=== PATIENT | female | born 1945 | race Caucasian/White ===

== ENCOUNTER 2021-10-03 17:33 | Inpatient (IN) | payer MEDICARE, OTHER ==
[2021-10-03 18:29] LABS: #Monocytes 0.7 10x3/uL (0.0-1.1); #Neutrophils 4.2 10x3/uL (1.5-8.4); %Basophils 0.3 % (0.0-2.0); %Lymphocytes 16.3 % (18.0-47.0); %Monocytes 11.2 % (0.0-10.0); %Neutrophils 71.3 % (40.0-75.0); Hemoglobin 12.4 g/dL (12.0-15.5); Mean Corpuscular HGB CONC 32.5 g/dL (32.0-36.0); Mean Corpuscular Hemoglobin 32.1 pg (27.0-33.0); Mean Corpuscular Volume 98.7 fl (81.6-98.3); Mean Platelet Volume 8.8 fl (7.4-10.4); Platelet Count 273 10x3/uL (150-450); RBC Distribution Width 12.9 % (11.5-14.5); Red Blood Cell (RBC) Count 3.86 10x6/uL (3.90-5.03); White Blood Cell (WBC) Count 5.8 10x3/uL (3.5-10.5)
[2021-10-03 18:44] LABS: ALT (SGPT) 20 U/L (8-55); AST (SGOT) 25 U/L (5-34); Albumin 3.6 g/dL (3.4-4.8); Alkaline Phosphatase 76 U/L (40-110); Anion Gap 14 mmol/L (10-20); BUN (Urea Nitrogen) 43 mg/dL (9.8-20.1); Bilirubin, Total 0.2 mg/dL (0.2-1.2); Calc. Creatinine Clearance 0 mL/min (70-130); Calcium 8.3 mg/dL (7.8-10.44); Carbon Dioxide 12 mmol/L (23-31); Chloride 111 mmol/L (98-107); Estimated GFR 22; Globulin 2.5 g/dL (2.4-3.5); Glucose 89 mg/dL (83-110); Protein, Total 6.1 g/dL (5.8-8.1); Sodium 130 mmol/L (136-145)
[2021-10-03 18:47] LABS: Potassium 6.6 mmol/L (3.5-5.1)
[2021-10-03] MEDS ORDERED: Sodium Bicarb 50 MEQ/50 ML VIAL ONE (19:16)
[2021-10-03] MEDS ORDERED: Dextrose 50% Abboject 50 ML SYRINGE ONE (19:17)
[2021-10-03] MEDS ORDERED: Insulin Regular 300 UNITS/3 ML VIAL ONE (19:17)
[2021-10-03] MEDS ORDERED: Calcium Chloride 1 GM/10 ML Abboject SYRINGE ONE (19:18)
[2021-10-03] MEDS ORDERED: Calcium Gluc 4.6 MEQ/10 ML (100 MG/ML) ONE (19:19)
[2021-10-03 19:51] LABS: Anion Gap 14 mmol/L (10-20); BUN (Urea Nitrogen) 41 mg/dL (9.8-20.1); Calc. Creatinine Clearance 0 mL/min (70-130); Calcium 8.1 mg/dL (7.8-10.44); Carbon Dioxide 12 mmol/L (23-31); Chloride 111 mmol/L (98-107); Estimated GFR 24; Glucose 77 mg/dL (83-110); Potassium 6.2 mmol/L (3.5-5.1); Sodium 131 mmol/L (136-145)
[2021-10-03] MEDS ORDERED: Albuterol Sulfate 2.5 mg/0.5 ml Neb ONE (19:55)
[2021-10-03] MEDS ORDERED: Albuterol Sulfate 2.5 mg/3 ml Neb ONE (19:55)
[2021-10-03] MEDS ORDERED: Ondansetron PF 4 MG/2 ML Vial IVP PRN (21:38)
[2021-10-03] MEDS ORDERED: Senokot S 8.6-50 MG TAB PO PRN (21:38)
[2021-10-03] MEDS ORDERED: Acetaminophen 325 MG TAB PO PRN (21:38)
[2021-10-03] MEDS ORDERED: Guaifenesin DM 100-10/5 ML UDCUP PO PRN (21:38)
[2021-10-03] MEDS ORDERED: Calcium Carbonate 500 MG ChewTAB PO PRN (21:38)
[2021-10-03] MEDS ORDERED: diphenhydrAMINE 12.5 MG/5 ML UDCUP PO PRN (21:44)
[2021-10-03] MEDS ORDERED: Sodium Chloride 0.9% 1,000 ML IV SCH (21:45)
[2021-10-03] MEDS ORDERED: LOKELMA 10 GM PACKET PO SCH (21:45)
[2021-10-03] MEDS ORDERED: Calcium Gluc 4.6 MEQ/10 ML (100 MG/ML) SLOW IVP SCH (22:00)
[2021-10-03] MEDS: Dextrose 5 %-0.45 % NaCl 1,000 ML IV SCH (23:29)
[2021-10-03 23:31] LABS: Anion Gap 14 mmol/L (10-20); BUN (Urea Nitrogen) 37 mg/dL (9.8-20.1); CK (CPK) 59 U/L (29-168); Calc. Creatinine Clearance 0 mL/min (70-130); Calcium 8.7 mg/dL (7.8-10.44); Carbon Dioxide 14 mmol/L (23-31); Chloride 114 mmol/L (98-107); Estimated GFR 26; Glucose 77 mg/dL (83-110); Potassium 5.6 mmol/L (3.5-5.1); Sodium 136 mmol/L (136-145)
[2021-10-03] MEDS: Sodium Bicarbonate Tab 325 MG TAB PO SCH (23:32)
[2021-10-04 00:05] VITALS: BMI 21.0
[2021-10-04 04:40] LABS: Hemoglobin 11.3 g/dL (12.0-15.5); Mean Corpuscular HGB CONC 33.4 g/dL (32.0-36.0); Mean Corpuscular Hemoglobin 32.4 pg (27.0-33.0); Mean Corpuscular Volume 96.8 fl (81.6-98.3); Mean Platelet Volume 8.8 fl (7.4-10.4); Platelet Count 239 10x3/uL (150-450); RBC Distribution Width 13.2 % (11.5-14.5); Red Blood Cell (RBC) Count 3.49 10x6/uL (3.90-5.03); White Blood Cell (WBC) Count 5.1 10x3/uL (3.5-10.5)
[2021-10-04 04:56] LABS: Anion Gap 12 mmol/L (10-20); BUN (Urea Nitrogen) 32 mg/dL (9.8-20.1); Calc. Creatinine Clearance 23 mL/min (70-130); Calcium 8.7 mg/dL (7.8-10.44); Carbon Dioxide 14 mmol/L (23-31); Chloride 113 mmol/L (98-107); Estimated GFR 31; Glucose 118 mg/dL (83-110); Potassium 4.5 mmol/L (3.5-5.1); Sodium 134 mmol/L (136-145)
[2021-10-04 04:58] LABS: MDiff Complete? YES
[2021-10-04 05:01] LABS: Band 9 % (5-11); Lymphocytes 22 % (21-51); Monocytes 6 % (0-10); Neutrophil 59 % (42-75); Reactive Lymphocytes 4 % (0-10)
[2021-10-04 05:02] LABS: Platelet Morphology Comment Appears Adequate; RBC Morphology Normal
[2021-10-04 05:12] LABS: Bilirubin Neg (Negative); Blood, Urine Negative (Negative); Clarity Clear (Clear); Glucose, Urine (Dipstick) Normal (Negative); Ketone, Urine Negative (Negative); Leukocyte Negative (Negative); Nitrite Negative (Negative); Protein, Urine (Dipstick) Negative (Neg-Trace); Specific Gravity, Urine 1.015 (1.002-1.036); Urobilinogen Normal mg/dL (Less than 2)
[2021-10-04 05:28] LABS: Free T4 (Free Thyroxine) 1.28 ng/dL (0.70-1.48); Thyroid Stimulating Hormone 0.0035 uIU/mL (0.35-4.94)
[2021-10-04 05:31] LABS: Bacteria/HPF None Seen HPF (None Seen); RBC/HPF 0-3 HPF (0-3); Squamous Epithelial 0-3 HPF (0-3); WBC/HPF 0-3 HPF (0-3)
[2021-10-04] MEDS ORDERED: BRINZOLAMIDE EA EYE SCH (09:00)
[2021-10-04] MEDS ORDERED: [UNRECOGNIZED DRUG - OTHER] EA EYE SCH (09:00)
[2021-10-04] MEDS ORDERED: BRIMONIDINE TART EA EYE SCH (09:00)
[2021-10-04] MEDS: Dextrose 5 %-0.45 % NaCl 1,000 ML IV SCH ×2 (10:11→18:02)
[2021-10-04] MEDS: Dorzolamide HCl 2% Ophth Soln 10 ml Bottle EA EYE SCH ×2 (10:12→22:00)
[2021-10-04] MEDS: Latanoprost 0.005% Ophth Soln 2.5 ml Bottle EA EYE SCH (10:12)
[2021-10-04] MEDS: Enoxaparin Sodium 30 MG/0.3 ML SYRINGE SC SCH (10:13)
[2021-10-04] MEDS: Brimonidine Tartrate 0.2% Ophth Soln 5 ml Bottle EA EYE SCH ×2 (10:13→22:00)
[2021-10-04] MEDS: Sodium Bicarbonate Tab 325 MG TAB PO SCH (10:13)
[2021-10-04] MEDS: Aspirin 81 mg Enteric Coated Tablet PO SCH (10:14)
[2021-10-04] MEDS: Ciprofloxacin 0.3% Ophth Soln 2.5 ml Bottle FS SCH ×2 (10:58→22:00)
[2021-10-05 04:54] LABS: MDiff Complete? YES
[2021-10-05 05:00] LABS: Anion Gap 9 mmol/L (10-20); BUN (Urea Nitrogen) 17 mg/dL (9.8-20.1); Calc. Creatinine Clearance 35 mL/min (70-130); Calcium 7.7 mg/dL (7.8-10.44); Carbon Dioxide 16 mmol/L (23-31); Chloride 115 mmol/L (98-107); Estimated GFR 50; Glucose 86 mg/dL (83-110); Potassium 3.8 mmol/L (3.5-5.1); Sodium 136 mmol/L (136-145)
[2021-10-05 05:47] LABS: Hemoglobin 10.8 g/dL (12.0-15.5); Mean Corpuscular Hemoglobin 32.3 pg (27.0-33.0); Mean Corpuscular Volume 95.2 fl (81.6-98.3); Mean Platelet Volume 8.8 fl (7.4-10.4); Platelet Count 222 10x3/uL (150-450); RBC Distribution Width 13.2 % (11.5-14.5); Red Blood Cell (RBC) Count 3.34 10x6/uL (3.90-5.03); White Blood Cell (WBC) Count 4.6 10x3/uL (3.5-10.5)
[2021-10-05 05:55] LABS: Band 1 % (5-11); Eosinophils 3 % (0-10); Lymphocytes 38 % (21-51); Monocytes 17 % (0-10); Neutrophil 41 % (42-75)
[2021-10-05 05:56] LABS: Platelet Morphology Comment Appears Adequate; RBC Morphology Normal
[2021-10-05] MEDS: Dextrose 5 %-0.45 % NaCl 1,000 ML IV SCH (08:21)
[2021-10-05] MEDS: Enoxaparin Sodium 30 MG/0.3 ML SYRINGE SC SCH (08:22)
[2021-10-05] MEDS: Aspirin 81 mg Enteric Coated Tablet PO SCH (08:23)
[2021-10-05] MEDS: Latanoprost 0.005% Ophth Soln 2.5 ml Bottle EA EYE SCH (08:23)
[2021-10-05] MEDS: Brimonidine Tartrate 0.2% Ophth Soln 5 ml Bottle EA EYE SCH (08:23)
[2021-10-05] MEDS: Dorzolamide HCl 2% Ophth Soln 10 ml Bottle EA EYE SCH (08:24)
[2021-10-05] MEDS: Ciprofloxacin 0.3% Ophth Soln 2.5 ml Bottle FS SCH (08:24)
[2021-10-05 08:44] VITALS: BP 124/73; TEMP 97.9
== END 2021-10-05 10:40 | disposition home health service (06) | DRG 682 ==
LOC: CSHERS 17:33 → CSHTELE 23:04
PROVIDERS: ADMIT Student in an Organized Health Care Education/Training Program; ATTEND Family Medicine
PROC: 8E0ZXY6 Isolation (ICD-10-PCS; principal; 2021-10-03)
DX: N17.9 Acute kidney failure, unspecified (principal); G93.41 Metabolic encephalopathy; U07.1 COVID-19; E87.2 Acidosis; N18.4 Chronic kidney disease, stage 4 (severe); E86.0 Dehydration; E87.5 Hyperkalemia; F41.9 Anxiety disorder, unspecified; F32.A Depression, unspecified; E03.9 Hypothyroidism, unspecified; H70.92 Unspecified mastoiditis, left ear; E78.5 Hyperlipidemia, unspecified; Z86.73 Personal history of transient ischemic attack (TIA), and cerebral infarction without residual deficits; Z79.899 Other long term (current) drug therapy; Z90.49 Acquired absence of other specified parts of digestive tract; Z90.710 Acquired absence of both cervix and uterus; Z98.890 Other specified postprocedural states
CPT/HCPCS: 36415; 36416; 70450; 71045; 76770; 80048; 80053; 81001; 82550; 84439; 84443; 84481; 84484; 85025; 93005; 94644; 94760; 96361; 96374; 96375; J0610; J1650; J1815; J7042; J7611; J7999

== ENCOUNTER 2022-08-13 14:00 | Emergency (ER) | payer OTHER ==
[2022-08-13 14:35] LABS: #Basophils 0.1 10x3/uL (0.0-0.2); #Eosinphils 0.2 10x3/uL (0.0-0.5); #Monocytes 0.8 10x3/uL (0.0-1.1); #Neutrophils 3.7 10x3/uL (1.5-8.4); %Eosinophils 3.4 % (0.0-6.0); %Lymphocytes 32.5 % (18.0-47.0); %Monocytes 10.8 % (0.0-10.0); %Neutrophils 51.7 % (40.0-75.0); Hemoglobin 11.1 g/dL (12.0-15.5); Mean Corpuscular HGB CONC 32.2 g/dL (32.0-36.0); Mean Corpuscular Hemoglobin 31.7 pg (27.0-33.0); Mean Corpuscular Volume 98.6 fl (81.6-98.3); Platelet Count 318 10x3/uL (150-450); RBC Distribution Width 13.2 % (11.5-14.5); White Blood Cell (WBC) Count 7.1 10x3/uL (3.5-10.5)
[2022-08-13 14:47] LABS: ALT (SGPT) 22 U/L (8-55); AST (SGOT) 33 U/L (5-34); Albumin 3.5 g/dL (3.4-4.8); Alkaline Phosphatase 86 U/L (40-110); Anion Gap 14 mmol/L (10-20); BUN (Urea Nitrogen) 21 mg/dL (9.8-20.1); Bilirubin, Total 0.3 mg/dL (0.2-1.2); Calc. Creatinine Clearance 0 mL/min (70-130); Calcium 8.2 mg/dL (7.8-10.44); Carbon Dioxide 16 mmol/L (23-31); Chloride 103 mmol/L (98-107); Estimated GFR 33; Globulin 2.1 g/dL (2.4-3.5); Glucose 96 mg/dL (83-110); Potassium 4.7 mmol/L (3.5-5.1); Protein, Total 5.6 g/dL (5.8-8.1); Sodium 128 mmol/L (136-145)
[2022-08-13] MEDS ORDERED: Furosemide 40 MG/4 ML VIAL ONE (16:41)
== END 2022-08-13 16:58 | disposition home or self-care (01) ==
LOC: CSHERS 14:00
DX: R06.02 Shortness of breath (principal); K21.9 Gastro-esophageal reflux disease without esophagitis; E78.5 Hyperlipidemia, unspecified; N18.6 End stage renal disease
CPT/HCPCS: 71045; 80053; 83880; 84484; 85025; 93005; 96374; J1940

== ENCOUNTER 2023-03-20 20:22 | Inpatient (IN) | payer OTHER ==
[2023-03-20] MEDS ORDERED: Ondansetron PF 4 MG/2 ML Vial ONE (21:02)
[2023-03-20] MEDS ORDERED: Morphine 4 MG/ML VIAL ONE (21:02)
[2023-03-20 21:10] LABS: Bilirubin Neg (Negative); Blood, Urine 50 (Negative); Clarity Slightly Cloudy (Clear); Glucose, Urine (Dipstick) Normal (Negative); Ketone, Urine Negative (Negative); Leukocyte 500 (Negative); Nitrite Negative (Negative); Protein, Urine (Dipstick) 100 mg/dl (Neg-Trace); Specific Gravity, Urine 1.015 (1.005-1.030); Urobilinogen Normal mg/dL (Less than 2)
[2023-03-20 21:23] LABS: Bacteria/HPF 1+ HPF (None Seen); CAUTI Indications for Culture Pelvic or flank pain
[2023-03-20 21:24] LABS: Urine Culture Reflex Yes Yes
[2023-03-20 21:40] LABS: #Monocytes 1.3 10x3/uL (0.0-1.1); #Neutrophils 7.3 10x3/uL (1.5-8.4); %Basophils 0.2 % (0.0-2.0); %Lymphocytes 4.4 % (18.0-47.0); %Monocytes 14.5 % (0.0-10.0); %Neutrophils 79.4 % (40.0-75.0); Hematocrit 32.7 % (34.9-44.5); Hemoglobin 11.6 g/dL (12.0-15.5); Mean Corpuscular HGB CONC 35.5 g/dL (32.0-36.0); Mean Corpuscular Hemoglobin 32.4 pg (27.0-33.0); Mean Corpuscular Volume 91.3 fl (81.6-98.3); Mean Platelet Volume 9.2 fl (7.4-10.4); Platelet Count 207 10x3/uL (150-450); RBC Distribution Width 13.6 % (11.5-14.5); Red Blood Cell (RBC) Count 3.58 10x6/uL (3.90-5.03); White Blood Cell (WBC) Count 9.2 10x3/uL (3.5-10.5)
[2023-03-20 21:47] LABS: ALT (SGPT) 30 U/L (8-55); AST (SGOT) 39 U/L (5-34); Albumin 3.2 g/dL (3.4-4.8); Alkaline Phosphatase 86 U/L (40-110); Anion Gap 15 mmol/L (10-20); BUN (Urea Nitrogen) 46 mg/dL (9.8-20.1); Bilirubin, Total 0.3 mg/dL (0.2-1.2); Calc. Creatinine Clearance 0 mL/min (70-130); Carbon Dioxide 17 mmol/L (23-31); Chloride 98 mmol/L (98-107); Estimated GFR 13; Globulin 2.8 g/dL (2.4-3.5); Glucose 126 mg/dL (83-110); Potassium 3.4 mmol/L (3.5-5.1); Sodium 127 mmol/L (136-145)
[2023-03-20] MEDS ORDERED: cefTRIAXone (ROCEPHIN) 1 GM VIAL ONE (23:13)
[2023-03-20] MEDS ORDERED: Potassium Chloride 20 MEQ (100 mL) BAG ONE (23:13)
[2023-03-21] MEDS ORDERED: Senokot S 8.6-50 MG TAB PO PRN (00:11)
[2023-03-21] MEDS ORDERED: Potassium Chloride 20 MEQ TAB PO SCH (00:30)
[2023-03-21] MEDS ORDERED: Potassium Chloride 20 MEQ TAB ONE (00:46)
[2023-03-21] MEDS: Sodium Chloride 0.9% 1,000 ML IV SCH ×2 (01:16→10:43)
[2023-03-21 01:44] VITALS: BMI 22.1
[2023-03-21 04:15] LABS: Anion Gap 13 mmol/L (10-20); BUN (Urea Nitrogen) 44 mg/dL (9.8-20.1); Calc. Creatinine Clearance 15 mL/min (70-130); Calcium 8.1 mg/dL (7.8-10.44); Carbon Dioxide 15 mmol/L (23-31); Chloride 104 mmol/L (98-107); Estimated GFR 16; Glucose 97 mg/dL (83-110); Magnesium 2.4 mg/dL (1.6-2.6); Potassium 3.9 mmol/L (3.5-5.1); Sodium 128 mmol/L (136-145)
[2023-03-21 05:15] LABS: #Monocytes 1.1 10x3/uL (0.0-1.1); #Neutrophils 6.7 10x3/uL (1.5-8.4); %Basophils 0.2 % (0.0-2.0); %Eosinophils 0.2 % (0.0-6.0); %Lymphocytes 7.2 % (18.0-47.0); %Monocytes 12.7 % (0.0-10.0); %Neutrophils 78.1 % (40.0-75.0); Hematocrit 30.9 % (34.9-44.5); Hemoglobin 10.9 g/dL (12.0-15.5); Mean Corpuscular HGB CONC 35.3 g/dL (32.0-36.0); Mean Corpuscular Hemoglobin 33.5 pg (27.0-33.0); Mean Corpuscular Volume 95.1 fl (81.6-98.3); Mean Platelet Volume 9.3 fl (7.4-10.4); Platelet Count 185 10x3/uL (150-450); RBC Distribution Width 13.9 % (11.5-14.5); Red Blood Cell (RBC) Count 3.25 10x6/uL (3.90-5.03); White Blood Cell (WBC) Count 8.6 10x3/uL (3.5-10.5)
[2023-03-21] MEDS: Levothyroxine Sodium 125 MCG TAB PO SCH (05:34)
[2023-03-21] MEDS ORDERED: BRIMONIDINE TART EA EYE SCH (09:00)
[2023-03-21] MEDS ORDERED: BRINZOLAMIDE EA EYE SCH (09:00)
[2023-03-21] MEDS ORDERED: [UNRECOGNIZED DRUG - OTHER] EA EYE SCH (09:00)
[2023-03-21] MEDS ORDERED: Enoxaparin 30 MG (0.3 mL) SYRINGE ONE (09:23)
[2023-03-21] MEDS: Latanoprost 0.005% Ophth Soln 2.5 ml Bottle EA EYE SCH (09:50)
[2023-03-21] MEDS: Enoxaparin 30 MG (0.3 mL) SYRINGE SC SCH (09:50)
[2023-03-21] MEDS ORDERED: Sodium Chloride 0.9% 1,000 ML IV SCH (12:45)
[2023-03-21] MEDS: Ipratropium/Albuterol 3 ML NEB NEB PRN (18:50)
[2023-03-21] MEDS: Escitalopram Oxalate 20 mg Tablet PO SCH (20:31)
[2023-03-21] MEDS: QUEtiapine 100 MG TAB PO SCH (20:31)
[2023-03-21] MEDS: Atorvastatin Calcium 20 MG TAB PO SCH (20:32)
[2023-03-21] MEDS: Acetaminophen 325 MG TAB PO PRN (20:32)
[2023-03-21] MEDS ORDERED: Ondansetron PF 4 MG/2 ML Vial IVP PRN (20:53)
[2023-03-21] MEDS ORDERED: Albuterol 2.5 MG (3 mL) NEB NEB SCH (21:15)
[2023-03-21] MEDS: Morphine 4 MG/ML VIAL SLOW IVP PRN (21:31)
[2023-03-21] MEDS: Doxycycline 100 MG in Sodium Chloride 0.9% 100 ML IVPB SCH (23:26)
[2023-03-21] MEDS: cefTRIAXone\\ROCEPHIN 2 GM in Sodium Chloride 0.9% 100 ML IVPB SCH (23:51)
[2023-03-22 04:56] LABS: #Monocytes 0.9 10x3/uL (0.0-1.1); %Basophils 0.3 % (0.0-2.0); %Eosinophils 0.4 % (0.0-6.0); %Lymphocytes 9.4 % (18.0-47.0); %Monocytes 11.9 % (0.0-10.0); %Neutrophils 75.6 % (40.0-75.0); Hematocrit 32.3 % (34.9-44.5); Hemoglobin 10.9 g/dL (12.0-15.5); Mean Corpuscular HGB CONC 33.7 g/dL (32.0-36.0); Mean Corpuscular Hemoglobin 32.3 pg (27.0-33.0); Mean Corpuscular Volume 95.8 fl (81.6-98.3); Mean Platelet Volume 9.1 fl (7.4-10.4); Platelet Count 222 10x3/uL (150-450); RBC Distribution Width 14.7 % (11.5-14.5); Red Blood Cell (RBC) Count 3.37 10x6/uL (3.90-5.03); White Blood Cell (WBC) Count 7.9 10x3/uL (3.5-10.5)
[2023-03-22 05:08] LABS: Anion Gap 13 mmol/L (10-20); BUN (Urea Nitrogen) 42 mg/dL (9.8-20.1); Calc. Creatinine Clearance 16 mL/min (70-130); Calcium 8.1 mg/dL (7.8-10.44); Carbon Dioxide 15 mmol/L (23-31); Chloride 112 mmol/L (98-107); Estimated GFR 18; Glucose 98 mg/dL (83-110); Magnesium 2.3 mg/dL (1.6-2.6); Potassium 5.1 mmol/L (3.5-5.1); Sodium 135 mmol/L (136-145)
[2023-03-22] MEDS: Levothyroxine Sodium 125 MCG TAB PO SCH (07:46)
[2023-03-22] MEDS: Latanoprost 0.005% Ophth Soln 2.5 ml Bottle EA EYE SCH (10:15)
[2023-03-22] MEDS: Doxycycline 100 MG in Sodium Chloride 0.9% 100 ML IVPB SCH (10:16)
[2023-03-22] MEDS: Enoxaparin 30 MG (0.3 mL) SYRINGE SC SCH (10:16)
[2023-03-22] MEDS: Morphine 4 MG/ML VIAL SLOW IVP PRN (14:38)
[2023-03-22] MEDS: Ipratropium/Albuterol 3 ML NEB NEB PRN (14:45)
[2023-03-22] MEDS: Budesonide 0.5 MG/2 ML NEB INH SCH (20:00)
[2023-03-22] MEDS: Ipratropium/Albuterol 3 ML NEB NEB SCH (20:10)
[2023-03-22] MEDS: Atorvastatin Calcium 20 MG TAB PO SCH (21:31)
[2023-03-22] MEDS: QUEtiapine 100 MG TAB PO SCH (21:31)
[2023-03-22] MEDS: Escitalopram Oxalate 20 mg Tablet PO SCH (21:31)
[2023-03-22] MEDS: Acetaminophen 325 MG TAB PO PRN (21:32)
[2023-03-23] MEDS: cefTRIAXone\\ROCEPHIN 2 GM in Sodium Chloride 0.9% 100 ML IVPB SCH (00:01)
[2023-03-23 03:55] LABS: #Eosinphils 0.1 10x3/uL (0.0-0.5); #Neutrophils 4.5 10x3/uL (1.5-8.4); %Basophils 0.4 % (0.0-2.0); %Eosinophils 1.8 % (0.0-6.0); %Lymphocytes 14.1 % (18.0-47.0); %Monocytes 14.1 % (0.0-10.0); %Neutrophils 65.9 % (40.0-75.0); Hematocrit 29.9 % (34.9-44.5); Hemoglobin 10.2 g/dL (12.0-15.5); Mean Corpuscular HGB CONC 34.1 g/dL (32.0-36.0); Mean Corpuscular Hemoglobin 33.3 pg (27.0-33.0); Mean Corpuscular Volume 97.7 fl (81.6-98.3); Platelet Count 197 10x3/uL (150-450); Red Blood Cell (RBC) Count 3.06 10x6/uL (3.90-5.03); White Blood Cell (WBC) Count 6.8 10x3/uL (3.5-10.5)
[2023-03-23 04:14] LABS: Anion Gap 11 mmol/L (10-20); BUN (Urea Nitrogen) 36 mg/dL (9.8-20.1); Calc. Creatinine Clearance 19 mL/min (70-130); Calcium 7.9 mg/dL (7.8-10.44); Carbon Dioxide 17 mmol/L (23-31); Chloride 110 mmol/L (98-107); Estimated GFR 22; Glucose 97 mg/dL (83-110); Sodium 133 mmol/L (136-145)
[2023-03-23] MEDS: Levothyroxine Sodium 125 MCG TAB PO SCH ×2 (06:35→11:33)
[2023-03-23] MEDS: Budesonide 0.5 MG/2 ML NEB INH SCH ×2 (07:20→18:55)
[2023-03-23] MEDS: Ipratropium/Albuterol 3 ML NEB NEB SCH ×2 (07:20→19:05)
[2023-03-23] MEDS: Enoxaparin 30 MG (0.3 mL) SYRINGE SC SCH (08:41)
[2023-03-23] MEDS: Latanoprost 0.005% Ophth Soln 2.5 ml Bottle EA EYE SCH (08:41)
[2023-03-23] MEDS: Doxycycline 100 MG in Sodium Chloride 0.9% 100 ML IVPB SCH ×3 (11:33→22:50)
[2023-03-23 15:18] LABS: SARS-CoV-2 NAA Rapid Test DETECTED (NotDetected)
[2023-03-23] MEDS: ALPRAZolam 0.25 MG TAB PO PRN (17:10)
[2023-03-23] MEDS ORDERED: Dexamethasone 4 MG TAB PO SCH (17:45)
[2023-03-23] MEDS: Atorvastatin Calcium 20 MG TAB PO SCH (21:04)
[2023-03-23] MEDS: guaiFENesin ER 600 MG TAB PO SCH (21:05)
[2023-03-23] MEDS: Escitalopram Oxalate 20 mg Tablet PO SCH (21:05)
[2023-03-23] MEDS: QUEtiapine 100 MG TAB PO SCH (21:05)
[2023-03-23] MEDS: Acetaminophen 325 MG TAB PO PRN (21:18)
[2023-03-24] MEDS: cefTRIAXone\\ROCEPHIN 2 GM in Sodium Chloride 0.9% 100 ML IVPB SCH ×2 (00:16→23:20)
[2023-03-24 04:16] LABS: Hematocrit 33.9 % (34.9-44.5); Hemoglobin 11.4 g/dL (12.0-15.5); Mean Corpuscular HGB CONC 33.6 g/dL (32.0-36.0); Mean Corpuscular Hemoglobin 32.6 pg (27.0-33.0); Mean Corpuscular Volume 96.9 fl (81.6-98.3); Platelet Count 209 10x3/uL (150-450); RBC Distribution Width 15.1 % (11.5-14.5); White Blood Cell (WBC) Count 7.1 10x3/uL (3.5-10.5)
[2023-03-24 04:17] LABS: MDiff Complete? YES
[2023-03-24 04:33] LABS: Anion Gap 14 mmol/L (10-20); BUN (Urea Nitrogen) 35 mg/dL (9.8-20.1); Calc. Creatinine Clearance 21 mL/min (70-130); Calcium 8.5 mg/dL (7.8-10.44); Carbon Dioxide 15 mmol/L (23-31); Chloride 114 mmol/L (98-107); Estimated GFR 25; Glucose 156 mg/dL (83-110); Potassium 5.8 mmol/L (3.5-5.1); Sodium 137 mmol/L (136-145)
[2023-03-24 04:41] LABS: Band 13 % (5-11); Lymphocytes 6 % (21-51); Metamyelocyte 2 % (0-0); Monocytes 2 % (0-10); Neutrophil 74 % (42-75); Reactive Lymphocytes 3 % (0-10)
[2023-03-24 04:44] LABS: RBC Morph Comment Within Normal Limits
[2023-03-24 04:45] LABS: Platelet Adequacy Comment Appears Adequate
[2023-03-24] MEDS: Levothyroxine Sodium 125 MCG TAB PO SCH (06:28)
[2023-03-24] MEDS: Enoxaparin 30 MG (0.3 mL) SYRINGE SC SCH (09:14)
[2023-03-24] MEDS: guaiFENesin ER 600 MG TAB PO SCH ×2 (09:15→21:03)
[2023-03-24] MEDS: Dexamethasone 4 MG TAB PO SCH (09:15)
[2023-03-24] MEDS: Latanoprost 0.005% Ophth Soln 2.5 ml Bottle EA EYE SCH (09:15)
[2023-03-24] MEDS: Ventolin HFA Inhaler 60 PUFF INHALER ONE ×2 (09:50→10:10)
[2023-03-24] MEDS: Budesonide 0.5 MG/2 ML NEB INH SCH (10:11)
[2023-03-24] MEDS: Ipratropium/Albuterol 3 ML NEB NEB SCH (10:11)
[2023-03-24] MEDS ORDERED: Ventolin HFA Inhaler 60 PUFF INHALER INH PRN ×2 (10:15)
[2023-03-24] MEDS ORDERED: LOKELMA 5 GM PACKET PO SCH (11:00)
[2023-03-24] MEDS: Doxycycline 100 MG in Sodium Chloride 0.9% 100 ML IVPB SCH (11:50)
[2023-03-24] MEDS: Ventolin HFA Inhaler 60 PUFF INHALER INH SCH ×2 (12:20→19:10)
[2023-03-24] MEDS: ALPRAZolam 0.25 MG TAB PO PRN (15:41)
[2023-03-24] MEDS: Morphine 4 MG/ML VIAL SLOW IVP PRN (16:10)
[2023-03-24 16:28] LABS: Anion Gap 14 mmol/L (10-20); BUN (Urea Nitrogen) 37 mg/dL (9.8-20.1); Calc. Creatinine Clearance 23 mL/min (70-130); Calcium 8.1 mg/dL (7.8-10.44); Carbon Dioxide 16 mmol/L (23-31); Chloride 112 mmol/L (98-107); Estimated GFR 27; Glucose 134 mg/dL (83-110); Potassium 4.6 mmol/L (3.5-5.1); Sodium 137 mmol/L (136-145)
[2023-03-24] MEDS: Mometasone 100 MCG/PUFF (1 INHALER) INH SCH (19:10)
[2023-03-24] MEDS: QUEtiapine 100 MG TAB PO SCH (21:03)
[2023-03-24] MEDS: Atorvastatin Calcium 20 MG TAB PO SCH (21:03)
[2023-03-24] MEDS: Escitalopram Oxalate 20 mg Tablet PO SCH (21:04)
[2023-03-25] MEDS: Doxycycline 100 MG in Sodium Chloride 0.9% 100 ML IVPB SCH ×2 (00:35→12:00)
[2023-03-25 04:11] LABS: Anion Gap 12 mmol/L (10-20); BUN (Urea Nitrogen) 35 mg/dL (9.8-20.1); Calc. Creatinine Clearance 25 mL/min (70-130); Calcium 8.3 mg/dL (7.8-10.44); Carbon Dioxide 17 mmol/L (23-31); Chloride 114 mmol/L (98-107); Estimated GFR 30; Glucose 106 mg/dL (83-110); Potassium 5.1 mmol/L (3.5-5.1); Sodium 138 mmol/L (136-145)
[2023-03-25] MEDS: Levothyroxine Sodium 125 MCG TAB PO SCH (05:43)
[2023-03-25] MEDS: Ventolin HFA Inhaler 60 PUFF INHALER INH SCH ×2 (07:00→11:20)
[2023-03-25] MEDS: Mometasone 100 MCG/PUFF (1 INHALER) INH SCH (07:05)
[2023-03-25] MEDS: Enoxaparin 30 MG (0.3 mL) SYRINGE SC SCH (09:21)
[2023-03-25] MEDS: Dexamethasone 4 MG TAB PO SCH (09:21)
[2023-03-25] MEDS: guaiFENesin ER 600 MG TAB PO SCH (09:21)
[2023-03-25] MEDS: Latanoprost 0.005% Ophth Soln 2.5 ml Bottle EA EYE SCH (09:22)
[2023-03-25] MEDS ORDERED: Doxycycline 100 MG CAP PO SCH (12:30)
[2023-03-25 14:10] VITALS: BP 138/72; TEMP 97.6
== END 2023-03-25 17:21 | disposition home or self-care (01) | DRG 871 ==
LOC: CSHERS 20:22 → CSHERHOLD 23:10 → CSHTELE 03-21 10:42
PROVIDERS: ADMIT Family Medicine; ATTEND Internal Medicine
PROC: 3E03329 Introduction of Other Anti-infective into Peripheral Vein, Percutaneous Approach (ICD-10-PCS; principal; 2023-03-20)
PROC: 8E0ZXY6 Isolation (ICD-10-PCS; 2023-03-20)
PROC: 3E0DX3Z Introduction of Anti-inflammatory into Mouth and Pharynx, External Approach (ICD-10-PCS; 2023-03-23)
DX: A41.50 Gram-negative sepsis, unspecified (principal); G93.41 Metabolic encephalopathy; U07.1 COVID-19; J12.82 Pneumonia due to coronavirus disease 2019; J96.01 Acute respiratory failure with hypoxia; N17.9 Acute kidney failure, unspecified; N10 Acute pyelonephritis; E87.1 Hypo-osmolality and hyponatremia; M54.50 Low back pain, unspecified; E87.5 Hyperkalemia; E03.9 Hypothyroidism, unspecified; N18.9 Chronic kidney disease, unspecified; H35.30 Unspecified macular degeneration; F41.9 Anxiety disorder, unspecified; Z79.899 Other long term (current) drug therapy; Z98.890 Other specified postprocedural states; Z90.89 Acquired absence of other organs; Z90.710 Acquired absence of both cervix and uterus; Z82.49 Family history of ischemic heart disease and other diseases of the circulatory system; Z80.3 Family history of malignant neoplasm of breast
CPT/HCPCS: 36415; 71045; 80048; 80053; 81001; 83605; 83735; 83880; 85025; 87040; 87086; 94640; 94664; 94760; 94762; J0696; J1650; J2270; J2405; J3480; J3490; J7050; J7611; J7620; J7626; J8540; U0002

== ENCOUNTER 2023-04-08 12:24 | Outpatient (CLI) | payer OTHER | END 2023-04-08 12:25 | disposition home or self-care (01) | LOC: CSHMAMMO 12:24 | PROVIDERS: ATTEND Family Medicine | DX: Z12.31 Encounter for screening mammogram for malignant neoplasm of breast (principal); Z98.82 Breast implant status; Z85.42 Personal history of malignant neoplasm of other parts of uterus; Z80.3 Family history of malignant neoplasm of breast | CPT/HCPCS: 77063; 77067 ==

== ENCOUNTER 2023-04-16 08:17 | Outpatient (CLI) | payer OTHER | END 2023-04-16 08:18 | disposition home or self-care (01) | LOC: CSHMAMMO 08:17 | PROVIDERS: ATTEND Family Medicine | DX: R92.30 Dense breasts, unspecified (principal); N60.01 Solitary cyst of right breast | CPT/HCPCS: 76642; 77065; G0279 ==

== ENCOUNTER 2023-07-23 18:43 | Emergency (ER) | payer OTHER ==
[2023-07-23 19:49] LABS: Bilirubin Neg (Negative); Blood, Urine 10 (Negative); Clarity Clear (Clear); Glucose, Urine (Dipstick) Normal (Negative); Ketone, Urine Negative (Negative); Leukocyte 500 (Negative); Nitrite Negative (Negative); Protein, Urine (Dipstick) 15 mg/dl (Neg-Trace); Urobilinogen Normal mg/dL (Less than 2); pH, Urine 6.5 (5.0-9.0)
[2023-07-23 19:55] LABS: ALT (SGPT) 30 U/L (8-55); AST (SGOT) 38 U/L (5-34); Albumin 3.4 g/dL (3.4-4.8); Alkaline Phosphatase 105 U/L (40-110); Anion Gap 12 mmol/L (10-20); BUN (Urea Nitrogen) 36 mg/dL (9.8-20.1); Bilirubin, Total 0.3 mg/dL (0.2-1.2); Calc. Creatinine Clearance 0 mL/min (70-130); Calcium 8.9 mg/dL (7.8-10.44); Carbon Dioxide 20 mmol/L (23-31); Chloride 100 mmol/L (98-107); Estimated GFR 27; Glucose 97 mg/dL (83-110); Lipase 114 U/L (8-78); Potassium 3.4 mmol/L (3.5-5.1); Protein, Total 6.4 g/dL (5.8-8.1); Sodium 129 mmol/L (136-145)
[2023-07-23 19:59] LABS: Troponin I Less than 0.010 ng/mL (< 0.028)
[2023-07-23 20:01] LABS: Bacteria/HPF 4+ HPF (None Seen); CAUTI Indications for Culture Dysuria,urgency,freq; RBC/HPF 0-3 HPF (0-3); Squamous Epithelial 21-50 HPF (0-3); Urine Culture Reflex No No; WBC/HPF 0-3 HPF (0-3)
[2023-07-23 20:39] LABS: #Basophils 0.02 10x3/uL (0.0-0.2); #Eosinphils 0.14 10x3/uL (0.0-0.5); #Monocytes 0.84 10x3/uL (0.0-1.1); #Neutrophils 4.61 10x3/uL (1.5-8.4); %Basophils 0.2 % (0.0-2.0); %Eosinophils 1.7 % (0.0-6.0); %Lymphocytes 31.9 % (18.0-47.0); %Monocytes 10.1 % (0.0-10.0); %Neutrophils 55.5 % (40.0-75.0); Hematocrit 39.3 % (34.9-44.5); Hemoglobin 13.8 g/dL (12.0-15.5); Mean Corpuscular HGB CONC 35.1 g/dL (32.0-36.0); Mean Corpuscular Hemoglobin 32.5 pg (27.0-33.0); Mean Corpuscular Volume 92.7 fl (81.6-98.3); Mean Platelet Volume 9.4 fl (7.4-10.4); Platelet Count 247 10x3/uL (150-450); RBC Distribution Width 12.3 % (11.5-14.5); Red Blood Cell (RBC) Count 4.24 10x6/uL (3.90-5.03); White Blood Cell (WBC) Count 8.3 10x3/uL (3.5-10.5)
== END 2023-07-23 21:42 | disposition home or self-care (01) ==
LOC: CSHERS 18:43
DX: N18.6 End stage renal disease (principal); R10.13 Epigastric pain
CPT/HCPCS: 36415; 71045; 76705; 80053; 81001; 83690; 83880; 84484; 85025; 93005; 96360

== ENCOUNTER → 2024-02-04 | Emergency (ER) | payer OTHER ==
[~2024-02-04] MED LIST: ALPRAZolam 0.5 MG TAB ONE; Brimonidine Tartrate 0.2% Ophth Soln 5 ml Bottle EA EYE SCH; Dorzolamide HCl 2% Ophth (10 mL) Bottle EA EYE SCH; NS 0.9% w/ 20 MEQ KCL 1,000 ML ONE; Potassium Bicarbonate/Cit Ac 20 MEQ TAB ONE; Potassium Chloride 20 MEQ TAB ONE; QUEtiapine 100 MG TAB PO SCH; SIMBRINZA EA EYE SCH; cefTRIAXone (ROCEPHIN) 1 GM VIAL ONE; traZODone HCl 50 MG TAB ONE
[2024-02-04 19:09] LABS: #Basophils 0.08 10x3/uL (0.0-0.2); #Eosinophils 0.13 10x3/uL (0.0-0.5); #Monocytes 0.92 10x3/uL (0.0-1.1); #Neutrophils 4.98 10x3/uL (1.5-8.4); %Basophils 0.9 % (0.0-2.0); %Eosinophils 1.5 % (0.0-6.0); %Lymphocytes 28.2 % (18.0-47.0); %Monocytes 10.7 % (0.0-10.0); %Neutrophils 58.1 % (40.0-75.0); ALT (SGPT) 25 U/L (8-55); AST (SGOT) 47 U/L (5-34); Albumin 3.8 g/dL (3.4-4.8); Alkaline Phosphatase 109 U/L (40-110); Anion Gap 17 mmol/L (10-20); BUN (Urea Nitrogen) 39 mg/dL (9.8-20.1); Bilirubin, Total 0.5 mg/dL (0.2-1.2); Calc. Creatinine Clearance 0 mL/min (70-130); Calcium 9.2 mg/dL (7.8-10.44); Carbon Dioxide 17 mmol/L (23-31); Chloride 101 mmol/L (98-107); Estimated GFR 13; Glucose 101 mg/dL (83-110); Hematocrit 40.5 % (34.9-44.5); Hemoglobin 14.1 g/dL (12.0-15.5); Magnesium 2.9 mg/dL (1.6-2.6); Mean Corpuscular HGB CONC 34.8 g/dL (32.0-36.0); Mean Corpuscular Hemoglobin 31.8 pg (27.0-33.0); Mean Corpuscular Volume 91.4 fL (81.6-98.3); Mean Platelet Volume 9.1 fL (7.4-10.4); Platelet Count 305 10x3/uL (150-450); Protein, Total 6.8 g/dL (5.8-8.1); RBC Distribution Width 13.3 % (11.5-14.5); Red Blood Cell (RBC) Count 4.43 10x6/uL (3.90-5.03); Sodium 132 mmol/L (136-145); White Blood Cell (WBC) Count 8.6 10x3/uL (3.5-10.5)
[2024-02-04 19:16] LABS: Troponin I 0.016 ng/mL (< 0.028)
[2024-02-04 19:43] LABS: Potassium 2.5 mmol/L (3.5-5.1)
[2024-02-04 20:16] LABS: Free T4 (Free Thyroxine) 0.49 ng/dL (0.70-1.48)
[2024-02-04 20:23] LABS: Bilirubin Neg (Negative); Blood, Urine 10 (Negative); Clarity Cloudy (Clear); Glucose, Urine (Dipstick) Normal (Negative); Ketone, Urine Negative (Negative); Leukocyte 500 (Negative); Nitrite Negative (Negative); Protein, Urine (Dipstick) 30 mg/dl (Neg-Trace); Urobilinogen Normal mg/dL (Less than 2)
[2024-02-04 20:36] LABS: Bacteria/HPF 4+ HPF (None Seen); CAUTI Indications for Culture Alt mental st,lethar; Squamous Epithelial 0-3 HPF (0-3); WBC/HPF 21-50 HPF (0-3)
[2024-02-04 20:37] LABS: Mucous/LPF 1+ LPF (<2+); Transitional Epithelial 0-3 HPF (None Seen)
[2024-02-04 20:38] LABS: Urine Culture Reflex Yes Yes
[2024-02-05 05:29] LABS: #Basophils 0.05 10x3/uL (0.0-0.2); #Eosinophils 0.19 10x3/uL (0.0-0.5); #Monocytes 1.07 10x3/uL (0.0-1.1); #Neutrophils 4.28 10x3/uL (1.5-8.4); %Basophils 0.6 % (0.0-2.0); %Eosinophils 2.2 % (0.0-6.0); %Lymphocytes 34.7 % (18.0-47.0); %Monocytes 12.4 % (0.0-10.0); %Neutrophils 49.4 % (40.0-75.0); Hematocrit 36.9 % (34.9-44.5); Hemoglobin 12.5 g/dL (12.0-15.5); Mean Corpuscular HGB CONC 33.9 g/dL (32.0-36.0); Mean Corpuscular Hemoglobin 31.4 pg (27.0-33.0); Mean Corpuscular Volume 92.7 fL (81.6-98.3); Mean Platelet Volume 8.9 fL (7.4-10.4); Platelet Count 259 10x3/uL (150-450); RBC Distribution Width 13.6 % (11.5-14.5); Red Blood Cell (RBC) Count 3.98 10x6/uL (3.90-5.03); White Blood Cell (WBC) Count 8.7 10x3/uL (3.5-10.5)
[2024-02-05 05:42] LABS: ALT (SGPT) 19 U/L (8-55); AST (SGOT) 35 U/L (5-34); Albumin 3.2 g/dL (3.4-4.8); Alkaline Phosphatase 98 U/L (40-110); Anion Gap 12 mmol/L (10-20); BUN (Urea Nitrogen) 34 mg/dL (9.8-20.1); Bilirubin, Total 0.4 mg/dL (0.2-1.2); Calc. Creatinine Clearance 0 mL/min (70-130); Calcium 8.1 mg/dL (7.8-10.44); Carbon Dioxide 17 mmol/L (23-31); Chloride 108 mmol/L (98-107); Estimated GFR 16; Globulin 2.3 g/dL (2.4-3.5); Glucose 88 mg/dL (83-110); Protein, Total 5.5 g/dL (5.8-8.1); Sodium 135 mmol/L (136-145)
[2024-02-05 05:58] LABS: Potassium 2.4 mmol/L (3.5-5.1)
== END ==
LOC: CSHERS 17:12
DX: N39.0 Urinary tract infection, site not specified (principal); N17.9 Acute kidney failure, unspecified; R41.82 Altered mental status, unspecified; E87.6 Hypokalemia; E03.9 Hypothyroidism, unspecified; K21.9 Gastro-esophageal reflux disease without esophagitis; N18.6 End stage renal disease; Z79.899 Other long term (current) drug therapy; Z79.890 Hormone replacement therapy; Z99.2 Dependence on renal dialysis
CPT/HCPCS: 70450; 71045; 81001; 83605; 83735; 84439; 84481; 84484; 87040; 87086; 87428; 93005; J0696; J3480; 36415; 80053; 84443; 85025; 96365; 96366; 96368

== ENCOUNTER 2024-02-09 10:46 | Outpatient (CLI) | payer OTHER | END 2024-02-09 10:47 | disposition home or self-care (01) | LOC: CSHRAD 10:46 | PROVIDERS: ATTEND Nurse Practitioner Family | DX: R05.1 Acute cough (principal); R91.1 Solitary pulmonary nodule | CPT/HCPCS: 71046; 87635 ==

== ENCOUNTER 2024-03-09 08:38 | Outpatient (CLI) | payer OTHER | END 2024-03-09 08:39 | disposition home or self-care (01) | LOC: CSHCT 08:38 | PROVIDERS: ATTEND Family Medicine | DX: R91.1 Solitary pulmonary nodule (principal); J43.9 Emphysema, unspecified; J98.4 Other disorders of lung; M48.54XA Collapsed vertebra, not elsewhere classified, thoracic region, initial encounter for fracture | CPT/HCPCS: 71250; 82565 ==

== ENCOUNTER 2025-01-27 13:56 | Outpatient (CLI) | payer OTHER | END 2025-01-27 13:57 | disposition home or self-care (01) | LOC: CSHCT 13:56 | PROVIDERS: ATTEND Radiology Radiation Oncology | DX: C34.11 Malignant neoplasm of upper lobe, right bronchus or lung (principal); R91.1 Solitary pulmonary nodule; R91.8 Other nonspecific abnormal finding of lung field | CPT/HCPCS: 71250 ==